=== PATIENT | male | born 1980 | race Two or more races ===

== ENCOUNTER 2017-05-24 13:05 | Emergency (ER) | payer OTHER ==
[~2017-05-24] VITALS: Ht 157.5 cm; Wt 66.7 kg
[2017-05-24 13:26] VITALS: BP 125/89
[2017-05-24] MEDS ORDERED: Silver Nitrate Stick TOPIC ONE (13:45)
[2017-05-24] MEDS ORDERED: Tetanus/Diptheria/Pertussis Vaccine 0.5ml Syr IM ONE (13:45)
[2017-05-24] MEDS ORDERED: Lidocaine 1% MPF 10mg/ml 5ml IM ONE (13:45)
--- NOTE | 2017-05-24 14:56 | Emergency Room Report ---
History of Present Illness General Chief Complaint: Laceration Source: Patient Present Illness HPI 36-year-old male presents to the emergency department for fingertip laceration to the left middle finger. 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 Patient is right-hand dominant he does not know when his last tetanus vaccination was he is estimating more than 5 years. Patient reports pain is reported as 4/ 10 in severity he states his primary symptom is bleeding. Denies taking blood thinning medications. He did not take medications prior to arrival. Denies numbness tingling or loss of sensation or gross motor movements of the extremities. Last tetanus unknown. Denies CP, Palpitations, LOC, AMS, dizziness , Changes in Vision, Sensation, paresthesias, or a sudden severe headache. Allergies: Coded Allergies: No Known Allergies (Unverified , 05/24/17) Patient History Past Medical History: see triage record Past Surgical History: none Pertinent Family History: none Immunizations: other Reviewed Nursing Documentation: PMH: Agreed; PSxH: Agreed Nursing Documentation-PMH Past Medical History: No Stated History Review of Systems All Other Systems: negative except mentioned in HPI Physical Exam Vital Signs Date Time Temp Pulse Resp B/P (MAP) Pulse Ox O2 Delivery O2 Flow Rate FiO2 05/24/17 13:14 98.3 93 20 125/89 95 Room Air 98.2 Sp02 EP Interpretation: reviewed, normal General Appearance: no apparent distress, alert, GCS 15, non-toxic Head: normocephalic, atraumatic ENT: hearing grossly normal, normal voice Respiratory: lungs clear, normal breath sounds, speaking full sentences Cardiovascular #1: regular rate, rhythm Cardiovascular #2: 2+ radial (R), 2+ radial (L) Rectal: deferred Genitourinary: normal inspection Musculoskeletal: back normal, gait/station normal, normal range of motion, tender - ttp to the distal fingertip of the LMF. FROM Neurologic: alert, oriented x3, responsive, motor strength/tone normal, sensory intact, speech normal, grossly normal Psychiatric: judgement/insight normal Skin: normal color, no rash, warm/dry, well hydrated, laceration - 1cm Nail and fingertip avulsion laceration left middle finger. currently bleeding- dark oozing. Procedures Laceration/Wound Repair Laceration/Wound Repair : Consent: Verbal Wound Location: upper extremity - LMF- avulsion of Distal fingertip and medial portion of the finger nail, and nail bed. Wound's Depth, Shape: nail-avulsed, other - fingertip is avulsed Wound Explored: clean Irrigated w/ Saline (ccs): 500 Anesthesia: 1% Lidocaine Volume Anesthetic (ccs): 3 Suture Size/Type: other - silver nitrate cauterization. - hemostasis achieved. Sterile Dressing Applied?: Yes Splint Applied?: Yes Type of Splint Applied: finger splint on the LMF. Sling Applied?: No Patient Tolerated: Well Complications: None Medical Decision Making PA Attestation Dr. Reddy is my supervising Physician whom patient management has been discussed with. Diagnostic Impression: Primary Impression: Laceration ER Course 36-year-old male presents to the emergency department for fingertip laceration to the left middle finger. 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 Patient is right-hand dominant he does not know when his last tetanus vaccination was he is estimating more than 5 years. Patient reports pain is reported 10 in severity he states his primary symptom is bleeding. Denies taking blood thinning medications. He did not take medications prior to arrival. Denies numbness tingling or loss of sensation or gross motor movements of the extremities. Denies CP, Palpitations, LOC, AMS, dizziness, Changes in Vision, Sensation, paresthesias, or a sudden severe headache. Ddx considered but are not limited to laceration, tendon injury, cellulitis, amputation Vital signs: are WNL, pt. is afebrile H&PE are most consistent with: Nail and fingertip avulsion laceration left middle finger. ORDERS: none required at this time, the diagnosis is clinical ED INTERVENTIONS: -Tetanus vaccine was administered as pt. vaccination status was unknown. - The wound was copiously irrigated with normal saline, and explored for foreign body for which no FB was found. - pt. is anesthetized with 1%lidocaine NO epi using tendon Sheath Digital block 3cc injected in a sterile fashion. - Silver Nitrate applicator is applied to areas that continued to bleed after holding pressure to the digital arteries. -Sterile dressing applied. --Finger Splint applied by nursing technician. Pt. remains neurovascularly intact. Discussed with patient: That we make every effort to approximate the laceration as best as we can so that scarring will be as cosmetically pleasing as possible with our limited cosmetic skill set in the Emergency dept. Regardless of our best efforts there will be scarring after laceration repair. The extent of scarring is unknown at this time. DISCHARGE: At this time pt. is stable for d/c to home. Will provide printed patient care instructions, and any necessary prescriptions. Care plan and follow up instructions have been discussed with the patient prior to discharge. Last Vital Signs Date Time Temp Pulse Resp B/P (MAP) Pulse Ox O2 Delivery O2 Flow Rate FiO2 05/24/17 13:26 98.2 93 20 125/89 95 Room Air 98.2 Disposition: HOME, SELF-CARE Condition: Stable Scripts Acetaminophen* (TYLENOL EXTRA STRENGTH*) 500 Mg Tablet 500 MG ORAL Q6H, #20 TAB 0 Refills Prov: Sandra Telles 05/24/17 Cephalexin* (KEFLEX*) 500 Mg Capsule 500 MG ORAL EVERY 12 HOURS for 7 Days, #14 CAP 0 Refills Prov: Sandra Telles 05/24/17 Referrals: NOT CHOSEN IPA/MD,REFERRING (PCP) Departure Forms: Return to Work Return to Work Date: May 26, 2017 Work Restrictions: No Heavy Lifting Other Restrictions: Keep Affected left hand clean and dry, limited use of left hand. Return to Full Activity: Jun 01, 2017 Patient Instructions: Nonsutured Laceration Care Additional Instructions: Take medications as directed. Follow up with a Primary Care Provider or Hand Specialist in 3-5 days, even if your symptoms have resolved. --Please review list of primary care clinics, if you do not already have a primary care provider Return sooner to ED if new symptoms occur, or current symptoms become worse. - Please note that this Emergency Department Report was dictated using [employer] software, occasionally this can lead to erroneous entry secondary to interpretation by the dictation equipment. Sandra Telles May 24, 2017 14:56
[2017-05-24] MEDS ORDERED: CEPHALEXIN500 MG ORAL (15:00)
[2017-05-24] MEDS ORDERED: TYLENOL EXTRA500 MG ORAL (15:00)
[2017-05-24 15:11] VITALS: BP 118/83
== END 2017-05-24 15:33 | disposition home or self-care (01) ==
LOC: EMR 13:55
DX: S61.313A Laceration without foreign body of left middle finger with damage to nail, initial encounter (principal); W26.0XXA Contact with knife, initial encounter; Y92.511 Restaurant or cafe as the place of occurrence of the external cause; Y99.0 Civilian activity done for income or pay; Z23 Encounter for immunization
CPT/HCPCS: 90471; 90715; 99284